=== PATIENT | male | born 1960 | race Two or more races ===

== ENCOUNTER 2021-12-22 11:27 | Emergency (ER) | payer OTHER ==
[~2021-12-22] VITALS: Ht 185.4 cm; Wt 95.3 kg
--- NOTE | 2021-12-22 11:35 | NUR ---
RECIVED PT 61 YRAS MALE FROM HOME c/o swallen on lt leg
--- NOTE | 2021-12-22 11:59 | NUR ---
SEEN BY DR. MCCORMACK
[2021-12-22] MEDS ORDERED: KETOROLAC TROMETHAMINE INJ 30 MG/ML VIAL IM ONE (12:00)
[2021-12-22] MEDS ORDERED: KETOROLAC TROMETHAMINE 15 MG/ML VIAL ONE (12:19)
--- NOTE | 2021-12-22 12:22 | NUR ---
US DONE AT BED SIDE FOR DAPPLER STUDY
--- NOTE | 2021-12-22 13:00 | NUR ---
dineses pain in lower extramity wating for dispo
[2021-12-22] MEDS ORDERED: HYDR-4303 PO (14:06)
[2021-12-22] MEDS ORDERED: IBUP-1955 PO (14:06)
--- NOTE | 2021-12-22 14:20 | NUR ---
D/C INSTRACTION GIVEN TO PT FULLY AND VERBLIZED UNDERSTOOD D/C HOME WITH FALLOW UP CARE
[2021-12-22 14:26] VITALS: BP 122/82
[2021-12-22] MEDS ORDERED: HYDROCODONE/APAP 5/325MG TABLET PO ONE (14:30)
== END 2021-12-22 14:27 | disposition home or self-care (01) ==
LOC: ER 11:39
DX: R60.9 Edema, unspecified (principal); G89.29 Other chronic pain; M79.605 Pain in left leg; M79.604 Pain in right leg; I10 Essential (primary) hypertension; E78.00 Pure hypercholesterolemia, unspecified
CPT/HCPCS: 73630; 93970; 96372; 99284; J1885

== ENCOUNTER 2022-07-24 13:54 | Emergency (ER) | payer OTHER ==
[~2022-07-24] VITALS: Ht 185.4 cm; Wt 102.5 kg
[~2022-07-24 13:54] MED LIST: HYDR-4303 PO; IBUP-1955 PO
--- NOTE | 2022-07-24 14:00 | NUR ---
[id number] FROM HOME WITH ALOC UNRESPONSIVE AT HOME RESPONDED AFTER nArcan was giveN. PLACED IN BED, AAOX4, AMBULATORY, BREATHING EVEN AND UNLABORED SATURATING AT 96%RA
--- NOTE | 2022-07-24 14:30 | NUR ---
BLOOD DRAWN AND URINE SAMPLE SENT TO LAB
[2022-07-24] MEDS ORDERED: NALO4SPR BNOSTRILS (14:49)
[2022-07-24 14:55] LABS: BASOPHILS % (AUTO) 0.3 % (0.0-2.0); EOSINOPHILS % (AUTO) 1.6 % (0.0-6.0); HEMATOCRIT 40 % (39-51); HEMOGLOBIN 12.7 g/dL (13.5-17.5); LYMPHOCYTES # (AUTO) 1.4 K/uL (0.8-4.8); LYMPHOCYTES % (AUTO) 25.6 % (20.0-44.0); MEAN CORPUSCULAR HGB CONC 32 g/dl (31.0-36.0); MEAN CORPUSCULAR VOLUME 97 fL (80-96); MONOCYTES # (AUTO) 0.4 K/uL (0.1-1.30); MONOCYTES % (AUTO) 7.3 % (2.0-12.0); NEUTROPHILS # (AUTO) 3.6 K/uL (1.8-8.9); NEUTROPHILS % (AUTO) 65.2 % (43.0-81.0); PLATELET COUNT (AUTO) 196 K/uL (150-450); RED BLOOD CELL COUNT(AUTO) 4.18 MIL/uL (4.5-6.0); WHITE BLOOD COUNT (AUTO) 5.5 K/uL (4.3-11.0)
[2022-07-24 14:56] LABS: BILIRUBIN,URINE NEGATIVE (NEGATIVE); COLOR,URINE YELLOW (YELLOW); LEUKOCYTE ESTERASE ,URINE 2+ (NEGATIVE); NITRITE, URINE NEGATIVE (NEGATIVE); PROTEIN,URINE NEGATIVE (NEGATIVE); UGLUCOSE NEGATIVE (NEGATIVE)
[2022-07-24 15:06] LABS: CALCIUM, SERUM 9.3 mg/dL (8.5-10.1); CREATININE 1.1 mg/dL (0.6-1.3); POTASSIUM 4.3 mmol/L (3.5-5.1)
[2022-07-24 15:12] LABS: BILIRUBIN,DIRECT 0.1 mg/dL (0.0-0.2); BILIRUBIN,TOTAL 0.5 mg/dL (0.2-1.0); TOTAL PROTEIN, SERUM 8.3 g/dL (6.4-8.2)
[2022-07-24 15:36] LABS: BACTERIA,URINE 1+ /HPF (None Seen); RBC,URINE 0-2 /HPF (0-2); WBC,URINE 21-50 /HPF (0-3)
--- NOTE | 2022-07-24 16:12 | NUR ---
Patient discharged to home in stable condition. Written and verbal after care instructions given. Patient verbalizes understanding of instruction.
[2022-07-24 16:14] VITALS: BP 160/90
== END 2022-07-24 16:12 | disposition home or self-care (01) ==
LOC: ER 13:57
DX: I10 Essential (primary) hypertension (principal); T65.91XA Toxic effect of unspecified substance, accidental (unintentional), initial encounter; Y92.009 Unspecified place in unspecified non-institutional (private) residence as the place of occurrence of the external cause; Z79.899 Other long term (current) drug therapy
CPT/HCPCS: 36415; 80048-TC; 80076-TC; 81001; 85025-TC; 87086-TC